=== PATIENT | male | born 1955 | race Caucasian/White ===

== ENCOUNTER 2019-07-13 09:55 | Emergency (ER) | payer OTHER, MEDICAID ==
[~2019-07-13] VITALS: Ht 188 cm; Wt 168.3 kg
[2019-07-13 10:09] VITALS: BP_SYST 177
--- NOTE | 2019-07-13 10:10 | NUR ---
PATIENT TO ER #5, TRUCK GREASER, SAO2, ABP
--- NOTE | 2019-07-13 10:18 | NUR ---
PATIENT PRESENTS TO THE ER WITH TWO HOUR HX OF EPISODIC HEMOPTYSIS VS HEMATEMESIS; NO TRAUMA, NO OTHER REMARKABLE S/S; PATIENT STATES CHRONIC SEVERE BODY ACHES
[2019-07-13] MEDS ORDERED: NACL 0.9% 1,000 ML IV ONE (10:24)
--- NOTE | 2019-07-13 10:25 | NUR ---
ERMD EVALUATION; ICE CHIPS PER ERMD
[2019-07-13] MEDS ORDERED: PANTOPRAZOLE SODIUM 40 MG/VIAL (PROTONIX) IVP ONE (10:30)
[2019-07-13] MEDS ORDERED: MORPHINE 4 MG/ML INJ. SYRINGE IVP ONE (10:30)
[2019-07-13] MEDS ORDERED: ONDANSETRON HCL 4 MG/2 ML VIAL IVP ONE (10:30)
[2019-07-13] MEDS ORDERED: cefTRIAXone 1 GM IVPB PREMIX 50 ML IV ONE (10:30)
[2019-07-13] MEDS ORDERED: TRIM100T11 PO (10:34)
[2019-07-13] MEDS ORDERED: POTA10TA15 PO (10:34)
[2019-07-13] MEDS ORDERED: BISA10SU61 RC (10:34)
[2019-07-13] MEDS ORDERED: SENN8.6T19 PO (10:34)
[2019-07-13] MEDS ORDERED: ZOLP5TAB2 PO (10:34)
[2019-07-13] MEDS ORDERED: SPIR25TA6 PO (10:34)
[2019-07-13] MEDS ORDERED: VITD2000 PO (10:34)
[2019-07-13] MEDS ORDERED: BACL10TA PO (10:34)
[2019-07-13] MEDS ORDERED: DULO60CA41 PO (10:34)
[2019-07-13] MEDS ORDERED: FLUT16SP16 NS (10:34)
[2019-07-13] MEDS ORDERED: FURO-149 PO (10:34)
[2019-07-13] MEDS ORDERED: LORA-258 PO (10:46)
[2019-07-13] MEDS ORDERED: MOM PO (10:46)
[2019-07-13] MEDS ORDERED: PRO40 PO (10:46)
[2019-07-13] MEDS ORDERED: LOPE2CAP PO (10:46)
[2019-07-13 11:32] LABS: BASOPHILS % (AUTO) 0.2 % (0.0-2.0); HEMATOCRIT 46.8 % (36-54); HEMOGLOBIN 16.2 g/dL (14.0-18.0); LYMPHOCYTES # (AUTO) 0.7 K/uL (1.0-5.5); LYMPHOCYTES % (AUTO) 7.8 % (20.5-51.5); MEAN CORPUSCULAR HEMOGLOBIN 33 pg (27-31); MEAN CORPUSCULAR HGB CONC 35 % (32-36); MEAN CORPUSCULAR VOLUME 96 fL (79.0-98.0); MONOCYTES # (AUTO) 0.5 K/uL (0.0-1.0); MONOCYTES % (AUTO) 5.1 % (1.7-9.3); NEUTROPHILS # (AUTO) 8.3 K/uL (1.8-7.7); NEUTROPHILS % (AUTO) 86.9 % (40.0-70.0); PLATELET COUNT (AUTO) 104 K/uL (130-430); RED BLOOD CELL COUNT(AUTO) 4.86 MIL/uL (4.2-6.2); RED CELL DISTRIBUTION WIDTH 14.5 % (9.0-15.0); WHITE BLOOD COUNT (AUTO) 9.6 K/uL (4.8-10.8)
--- NOTE | 2019-07-13 11:35 | NUR ---
REASSESSMENT; PATIENT STATES MARKED IMPROVEMENT IN SYMPTOMS; DISPOSITION PENDING; IN AND OUT CATH VERBAL ERMD FOR UA
[2019-07-13 11:48] LABS: CREATININE 0.96 mg/dL (0.55-1.30); POTASSIUM 3.7 mmol/L (3.5-5.1)
[2019-07-13 11:52] LABS: INR 1.1 (0.80-1.20); PROTHROMBIN TIME 11.3 SECS (9.5-12.5)
[2019-07-13 12:19] LABS: ALBUMIN 3.6 g/dL (3.4-4.8); FREE T4 (FREE THYROXINE) 1.2 ng/dl (0.8-1.5); THYROID STIMULATING HORMONE 0.88 uIu/mL (0.36-3.74); TOTAL BILIRUBIN 2.1 mg/dL (0.0-1.0)
[2019-07-13 12:26] LABS: CKMB RELATIVE INDEX 0.6 (0.0-2.9); CREATINE KINASE MB 2.9 ng/mL (0-3.6)
[2019-07-13 12:32] LABS: BILIRUBIN,URINE 1+ (NEGATIVE); BLOOD, URINE 1+ (NEGATIVE); GLUCOSE,URINE NEGATIVE (NEGATIVE); KETONES,URINE 1+ (NEGATIVE); LEUKOCYTE ESTERASE ,URINE NEGATIVE (NEGATIVE); NITRITE, URINE NEGATIVE (NEGATIVE); PH,URINE 6.5 (5.0-8.0); PROTEIN URINE 2+ (NEGATIVE); UROBILINOGEN,URINE 0.2 (0.2-1.0)
[2019-07-13 12:33] LABS: CLARITY/URINE HAZY (CLEAR); COLOR,URINE AMBER (YELLOW)
[2019-07-13 12:39] LABS: BACTERIA,URINE FEW /HPF (None Seen); MUCUS,URINE 1+ /LPF (None Seen); WBC,URINE 0-3 /HPF (0-3)
--- NOTE | 2019-07-13 12:40 | NUR ---
IV PULL OUT..(INADVERTENT); RESTART #24 LEFT HAND; REASSESSMENT; PATIENT STATES HIS PAIN HAS IMPROVED; DISPOSITION PENDING
--- NOTE | 2019-07-13 14:08 | NUR ---
REASSESSMENT; PATIENT IS SEDATE AND UNCHANGED; DISPOSITION PENDING
--- NOTE | 2019-07-13 14:37 | NUR ---
REASSESSMENT; PATIENT STATES HIS SYMPTOMS ARE MANAGED WELL, NO FURTHER HEMATEMESIS /HEMOPTYSIS, REPORT CALLED TO [facility] PENDING RETURN AND [facility] PHONED FOR BAKERY SUPERVISOR; ETA 30 MIN
[2019-07-13 14:44] VITALS: BP_SYST 154
--- NOTE | 2019-07-13 15:27 | NUR ---
DIPatient given written and verbal discharge instructions and verbalizes understanding. ER MD discussed with patient the results and treatment provided. Patient in stable condition. ID arm band removed. IV catheter removed intact and dressing applied, no active bleeding. Rx of Z PAC, PREDNISONE given. Patient educated on pain management and to follow up with PMD. Pain Scale . Opportunity for questions provided and answered. Medication side effect fact sheet provided.
== END 2019-07-13 14:44 ==
LOC: SED 09:55
DX: J40 Bronchitis, not specified as acute or chronic (principal); F41.9 Anxiety disorder, unspecified; R04.2 Hemoptysis; J44.9 Chronic obstructive pulmonary disease, unspecified; K21.9 Gastro-esophageal reflux disease without esophagitis; I10 Essential (primary) hypertension; I51.9 Heart disease, unspecified; F17.210 Nicotine dependence, cigarettes, uncomplicated; Z79.899 Other long term (current) drug therapy
CPT/HCPCS: 36415; 71045; 80053; 81000; 82150; 82550; 82553; 82962; 83605; 83690; 83880; 84439; 84443; 84479; 84484; 85025; 85610; 85730; 86710; 87040; 93005; 96365; 96375; 99285; C9113; J0696; J2270; J2405; J7030

== ENCOUNTER 2019-07-17 11:06 | Inpatient (IN) | payer OTHER, MEDICAID ==
[~2019-07-17] VITALS: Ht 188 cm; Wt 143.6 kg
[~2019-07-17 11:06] MED LIST: BACL10TA PO; BISA10SU61 RC; DULO60CA41 PO; FLUT16SP16 NS; FURO-149 PO; LOPE2CAP PO; LORA-258 PO; MOM PO; POTA10TA15 PO; PRO40 PO; SENN8.6T19 PO; SPIR25TA6 PO; TRIM100T11 PO; VITD2000 PO; ZOLP5TAB2 PO
[2019-07-17 11:14] VITALS: BP_SYST 130
[2019-07-17] MEDS ORDERED: HYDR-3610 PO (11:54)
[2019-07-17] MEDS ORDERED: ASA81 PO (11:54)
[2019-07-17] MEDS ORDERED: SULF1TAB3 PO (11:54)
[2019-07-17] MEDS ORDERED: ACET325C6 PO (11:54)
[2019-07-17] MEDS ORDERED: DOCU-144 PO (11:54)
[2019-07-17] MEDS ORDERED: ASCO500T9 PO (11:54)
[2019-07-17] MEDS ORDERED: LACT10SO7 PO (11:54)
[2019-07-17 12:30] LABS: BASOPHILS # (AUTO) 0.1 K/uL (0.0-0.2); BASOPHILS % (AUTO) 2.9 % (0.0-2.0); EOSINOPHILS # (AUTO) 0.2 K/uL (0.0-0.4); EOSINOPHILS % (AUTO) 3.6 % (0.0-4.0); HEMATOCRIT 44.1 % (36-54); HEMOGLOBIN 15.2 g/dL (14.0-18.0); LYMPHOCYTES # (AUTO) 0.9 K/uL (1.0-5.5); LYMPHOCYTES % (AUTO) 18.3 % (20.5-51.5); MEAN CORPUSCULAR HEMOGLOBIN 33 pg (27-31); MEAN CORPUSCULAR HGB CONC 35 % (32-36); MEAN CORPUSCULAR VOLUME 96 fL (79.0-98.0); MONOCYTES # (AUTO) 0.3 K/uL (0.0-1.0); MONOCYTES % (AUTO) 5.6 % (1.7-9.3); NEUTROPHILS # (AUTO) 3.3 K/uL (1.8-7.7); NEUTROPHILS % (AUTO) 69.6 % (40.0-70.0); PLATELET COUNT (AUTO) 111 K/uL (130-430); RED CELL DISTRIBUTION WIDTH 14.1 % (9.0-15.0); WHITE BLOOD COUNT (AUTO) 4.7 K/uL (4.8-10.8)
[2019-07-17 12:37] LABS: CALCIUM 7.9 mg/dL (8.4-11.0); CREATININE 0.8 mg/dL (0.55-1.30); POTASSIUM 3.3 mmol/L (3.5-5.1)
[2019-07-17 12:39] LABS: INR 1.1 (0.80-1.20); PROTHROMBIN TIME 11.2 SECS (9.5-12.5)
[2019-07-17 12:41] LABS: ALBUMIN 3.2 g/dL (3.4-4.8); TOTAL BILIRUBIN 2.4 mg/dL (0.0-1.0)
[2019-07-17 15:17] VITALS: BP_SYST 161
[2019-07-17] MEDS ORDERED: BACLOFEN 10 MG TABLET PO SCH (19:30)
[2019-07-17] MEDS ORDERED: MILK OF MAGNESIA 30 ML UDC PO SCH (19:30)
[2019-07-17] MEDS ORDERED: LORazepam 1 MG TABLET PO PRN (19:30)
[2019-07-17] MEDS ORDERED: ZOLPIDEM TARTRATE 5 MG TABLET PO PRN (19:30)
[2019-07-17 20:00] VITALS: BP_SYST 134
[2019-07-17] MEDS: DOCUSATE SODIUM 100 MG CAPSULE PO SCH (21:29)
[2019-07-17] MEDS: VANCOMYCIN HCL 1,500 MG in NS 250 ML IV SCH (21:29)
[2019-07-18 00:47] VITALS: BP_SYST 159
[2019-07-18] MEDS: VANCOMYCIN HCL 1,500 MG in NS 250 ML IV SCH ×3 (03:55→20:00)
[2019-07-18 08:00] VITALS: BP_SYST 113
[2019-07-18] MEDS ORDERED: HALOPERIDOL LACTATE 5 MG/ML VIAL ONE (08:47)
[2019-07-18] MEDS: POTASSIUM CHLORIDE 10 MEQ TAB.PRT.SR PO SCH (09:00)
[2019-07-18] MEDS: DULoxetine HCL 30 MG CAPSULE.DR (CYMBALTA) PO SCH (09:00)
[2019-07-18] MEDS ORDERED: DEXTROSE 50% JECT 50 ML DISP.SYRIN IVP PRN (09:00)
[2019-07-18] MEDS ORDERED: FUROSEMIDE 40 MG TABLET PO SCH (09:00)
[2019-07-18] MEDS: DOCUSATE SODIUM 100 MG CAPSULE PO SCH ×2 (09:00→21:00)
[2019-07-18] MEDS ORDERED: HALOPERIDOL LACTATE 5 MG/ML VIAL IM ONE (09:00)
[2019-07-18] MEDS ORDERED: PANTOPRAZOLE SODIUM 40 MG TAB PO SCH (09:00)
[2019-07-18] MEDS: SPIRONOLACTONE 25 MG TABLET (ALDACTONE) PO SCH (09:00)
[2019-07-18] MEDS ORDERED: PIPERACILLIN/TAZO 3.375/DEX-IS 50 ML IV ONE (09:00)
[2019-07-18] MEDS: ASPIRIN 81 MG TAB.CHEW PO SCH (09:00)
[2019-07-18 16:47] VITALS: BP_SYST 157
[2019-07-18] MEDS: PIPERACILLIN/TAZO 3.375/DEX-IS 50 ML IV SCH (18:00)
[2019-07-19 00:41] VITALS: BP_SYST 122
[2019-07-19] MEDS: VANCOMYCIN HCL 1,500 MG in NS 250 ML IV SCH ×3 (04:36→20:38)
[2019-07-19 06:18] LABS: CHOLESTEROL 113 mg/dL (<200); HDL CHOLESTEROL 35 mg/dL (>45); LDL CHOLESTEROL 63 mg/dL (<100); TRIGLYCERIDES 52 mg/dL (30-150)
[2019-07-19] MEDS: PIPERACILLIN/TAZO 3.375/DEX-IS 50 ML IV SCH ×4 (06:37→17:14)
[2019-07-19] MEDS: LORazepam 2 MG/ML VIAL IVP SCH ×3 (06:40→22:00)
[2019-07-19] MEDS: DIPHENHYDRAMINE INJ 50 MG/ML VIAL IVP SCH ×3 (06:41→22:00)
[2019-07-19] MEDS: HALOPERIDOL LACTATE 5 MG/ML VIAL IM SCH ×3 (06:52→22:00)
[2019-07-19 07:43] VITALS: BP_SYST 149
[2019-07-19] MEDS: DOCUSATE SODIUM 100 MG CAPSULE PO SCH ×2 (09:00→20:38)
[2019-07-19] MEDS: POTASSIUM CHLORIDE 10 MEQ TAB.PRT.SR PO SCH (09:00)
[2019-07-19] MEDS: ASPIRIN 81 MG TAB.CHEW PO SCH (09:00)
[2019-07-19] MEDS: SPIRONOLACTONE 25 MG TABLET (ALDACTONE) PO SCH (09:00)
[2019-07-19] MEDS: DULoxetine HCL 30 MG CAPSULE.DR (CYMBALTA) PO SCH (09:00)
[2019-07-19] MEDS ORDERED: PANTOPRAZOLE SODIUM 40 MG/VIAL (PROTONIX) IVP ONE (10:00)
[2019-07-19] MEDS ORDERED: FUROSEMIDE 40 MG/4 ML VIAL IVP ONE (10:00)
[2019-07-19 12:20] VITALS: BP_SYST 163
[2019-07-19 16:27] VITALS: BP_SYST 142
[2019-07-19] MEDS: INSULIN REGULAR, HUMAN 100 UNITS/ML, 10 ML VIAL (humuLIN R) SUBCUT PRN (17:12)
[2019-07-19 19:00] VITALS: BP_SYST 142
[2019-07-19 20:00] VITALS: BP_SYST 142
[2019-07-20 00:02] VITALS: BP_SYST 137
[2019-07-20] MEDS: PIPERACILLIN/TAZO 3.375/DEX-IS 50 ML IV SCH ×5 (00:12→17:26)
[2019-07-20] MEDS: INSULIN REGULAR, HUMAN 100 UNITS/ML, 10 ML VIAL (humuLIN R) SUBCUT PRN (00:34)
[2019-07-20] MEDS: VANCOMYCIN HCL 1,500 MG in NS 250 ML IV SCH ×3 (03:32→19:58)
[2019-07-20] MEDS: HALOPERIDOL LACTATE 5 MG/ML VIAL IM SCH ×3 (06:04→21:30)
[2019-07-20] MEDS: LORazepam 2 MG/ML VIAL IVP SCH ×3 (06:04→21:30)
[2019-07-20] MEDS: DIPHENHYDRAMINE INJ 50 MG/ML VIAL IVP SCH ×3 (06:05→21:30)
[2019-07-20] MEDS: SPIRONOLACTONE 25 MG TABLET (ALDACTONE) PO SCH (09:00)
[2019-07-20] MEDS: DOCUSATE SODIUM 100 MG CAPSULE PO SCH ×2 (09:00→21:00)
[2019-07-20] MEDS: ASPIRIN 81 MG TAB.CHEW PO SCH (09:00)
[2019-07-20] MEDS: POTASSIUM CHLORIDE 10 MEQ TAB.PRT.SR PO SCH (09:00)
[2019-07-20] MEDS: DULoxetine HCL 30 MG CAPSULE.DR (CYMBALTA) PO SCH (09:00)
[2019-07-20] MEDS: FUROSEMIDE 40 MG/4 ML VIAL IVP SCH (09:00)
[2019-07-20] MEDS: PANTOPRAZOLE SODIUM 40 MG/VIAL (PROTONIX) IVP SCH (09:40)
[2019-07-20 12:10] VITALS: BP_SYST 114
[2019-07-20 12:10] LABS: ALBUMIN 3.2 g/dL (3.4-4.8); CALCIUM 8.2 mg/dL (8.4-11.0); CREATININE 0.77 mg/dL (0.55-1.30); POTASSIUM 3.2 mmol/L (3.5-5.1); TOTAL BILIRUBIN 1.4 mg/dL (0.0-1.0); VANCOMYCIN,TROUGH 9.6 ug/mL (5.0-10.0)
[2019-07-20 12:12] LABS: BASOPHILS % (AUTO) 0.5 % (0.0-2.0); EOSINOPHILS # (AUTO) 0.2 K/uL (0.0-0.4); EOSINOPHILS % (AUTO) 5.7 % (0.0-4.0); HEMATOCRIT 45.7 % (36-54); HEMOGLOBIN 15.5 g/dL (14.0-18.0); LYMPHOCYTES # (AUTO) 0.9 K/uL (1.0-5.5); LYMPHOCYTES % (AUTO) 23.2 % (20.5-51.5); MEAN CORPUSCULAR HEMOGLOBIN 33 pg (27-31); MEAN CORPUSCULAR HGB CONC 34 % (32-36); MEAN CORPUSCULAR VOLUME 96 fL (79.0-98.0); MONOCYTES # (AUTO) 0.3 K/uL (0.0-1.0); MONOCYTES % (AUTO) 8.3 % (1.7-9.3); NEUTROPHILS # (AUTO) 2.3 K/uL (1.8-7.7); NEUTROPHILS % (AUTO) 62.3 % (40.0-70.0); PLATELET COUNT (AUTO) 94 K/uL (130-430); RED BLOOD CELL COUNT(AUTO) 4.77 MIL/uL (4.2-6.2); RED CELL DISTRIBUTION WIDTH 14.7 % (9.0-15.0); WHITE BLOOD COUNT (AUTO) 3.7 K/uL (4.8-10.8)
[2019-07-20 16:23] VITALS: BP_SYST 136
[2019-07-21] MEDS: PIPERACILLIN/TAZO 3.375/DEX-IS 50 ML IV SCH ×3 (00:22→11:24)
[2019-07-21 00:29] VITALS: BP_SYST 117
[2019-07-21] MEDS: VANCOMYCIN HCL 1,500 MG in NS 250 ML IV SCH ×2 (03:28→11:24)
[2019-07-21] MEDS: DIPHENHYDRAMINE INJ 50 MG/ML VIAL IVP SCH ×3 (06:00→21:32)
[2019-07-21] MEDS: LORazepam 2 MG/ML VIAL IVP SCH ×3 (06:00→21:32)
[2019-07-21] MEDS: HALOPERIDOL LACTATE 5 MG/ML VIAL IM SCH ×2 (06:10→22:00)
[2019-07-21] MEDS ORDERED: DIPHENHYDRAMINE INJ 50 MG/ML VIAL IM ONE ×2 (06:45→14:30)
[2019-07-21] MEDS ORDERED: LORazepam 2 MG/ML VIAL IM ONE ×2 (06:45→14:30)
[2019-07-21] MEDS: SPIRONOLACTONE 25 MG TABLET (ALDACTONE) PO SCH (09:00)
[2019-07-21] MEDS: DOCUSATE SODIUM 100 MG CAPSULE PO SCH ×2 (09:00→21:28)
[2019-07-21] MEDS: PANTOPRAZOLE SODIUM 40 MG/VIAL (PROTONIX) IVP SCH (09:00)
[2019-07-21] MEDS: POTASSIUM CHLORIDE 10 MEQ TAB.PRT.SR PO SCH (09:00)
[2019-07-21] MEDS: FUROSEMIDE 40 MG/4 ML VIAL IVP SCH (09:00)
[2019-07-21] MEDS: ASPIRIN 81 MG TAB.CHEW PO SCH (09:00)
[2019-07-21] MEDS: DULoxetine HCL 30 MG CAPSULE.DR (CYMBALTA) PO SCH (09:00)
[2019-07-21 12:18] VITALS: BP_SYST 143
[2019-07-21 16:08] VITALS: BP_SYST 145
[2019-07-21] MEDS ORDERED: CLINDAMYCIN HCL 150 MG CAPSULE PO ONE (16:15)
[2019-07-21] MEDS ORDERED: LEVOFLOXACIN 500 MG TABLET PO ONE (16:15)
[2019-07-21 20:00] VITALS: BP_SYST 137
[2019-07-21] MEDS: CLINDAMYCIN HCL 150 MG CAPSULE PO SCH (21:27)
[2019-07-22 00:19] VITALS: BP_SYST 163
[2019-07-22] MEDS: HYDROcodone/ACETAMIN 5-325 MG TAB (NORCO/ VICODIN) PO PRN (01:50)
[2019-07-22 04:50] VITALS: BP_SYST 125
[2019-07-22 08:35] VITALS: BP_SYST 148
[2019-07-22] MEDS: FUROSEMIDE 40 MG/4 ML VIAL IVP SCH (08:40)
[2019-07-22] MEDS: PANTOPRAZOLE SODIUM 40 MG/VIAL (PROTONIX) IVP SCH (08:40)
[2019-07-22] MEDS: ASPIRIN 81 MG TAB.CHEW PO SCH (08:40)
[2019-07-22] MEDS: DULoxetine HCL 30 MG CAPSULE.DR (CYMBALTA) PO SCH (08:41)
[2019-07-22] MEDS: DOCUSATE SODIUM 100 MG CAPSULE PO SCH ×2 (08:41→21:05)
[2019-07-22] MEDS: SPIRONOLACTONE 25 MG TABLET (ALDACTONE) PO SCH (08:41)
[2019-07-22] MEDS: POTASSIUM CHLORIDE 10 MEQ TAB.PRT.SR PO SCH (08:41)
[2019-07-22] MEDS: LEVOFLOXACIN 500 MG TABLET PO SCH (08:41)
[2019-07-22] MEDS: CLINDAMYCIN HCL 150 MG CAPSULE PO SCH ×3 (08:41→21:05)
[2019-07-22 12:11] VITALS: BP_SYST 135
[2019-07-22 16:40] VITALS: BP_SYST 130
[2019-07-22 20:10] VITALS: BP_SYST 142
[2019-07-23 00:11] VITALS: BP_SYST 156
[2019-07-23] MEDS: HYDROcodone/ACETAMIN 5-325 MG TAB (NORCO/ VICODIN) PO PRN (03:54)
[2019-07-23 08:40] VITALS: BP_SYST 115
[2019-07-23] MEDS ORDERED: PANTOPRAZOLE SODIUM 40 MG TAB PO SCH (09:00)
[2019-07-23] MEDS ORDERED: EMOLLIENT COMBINATION NO.73 78 GM CREAM..G. TP SCH (09:00)
[2019-07-23] MEDS ORDERED: FUROSEMIDE 40 MG TABLET PO SCH (09:00)
[2019-07-23] MEDS: FUROSEMIDE 40 MG/4 ML VIAL IVP SCH (09:00)
[2019-07-23] MEDS: DULoxetine HCL 30 MG CAPSULE.DR (CYMBALTA) PO SCH (09:13)
[2019-07-23] MEDS: SPIRONOLACTONE 25 MG TABLET (ALDACTONE) PO SCH (09:13)
[2019-07-23] MEDS: POTASSIUM CHLORIDE 10 MEQ TAB.PRT.SR PO SCH (09:13)
[2019-07-23] MEDS: ASPIRIN 81 MG TAB.CHEW PO SCH (09:14)
[2019-07-23] MEDS: LEVOFLOXACIN 500 MG TABLET PO SCH (09:14)
[2019-07-23] MEDS: DOCUSATE SODIUM 100 MG CAPSULE PO SCH (09:19)
[2019-07-23] MEDS: CLINDAMYCIN HCL 150 MG CAPSULE PO SCH ×2 (09:19→15:18)
[2019-07-23 12:55] VITALS: BP_SYST 150
[2019-07-23 16:14] VITALS: BP_SYST 150
[2019-07-23 17:28] VITALS: BP_SYST 147
== END 2019-07-23 18:39 | DRG 565 ==
LOC: SED 11:06 → SMU 14:03
PROVIDERS: ADMIT Internal Medicine Hospice and Palliative Medicine; ATTEND Internal Medicine Hospice and Palliative Medicine
DX: T87.44 Infection of amputation stump, left lower extremity (principal); L03.115 Cellulitis of right lower limb; F23 Brief psychotic disorder; F11.20 Opioid dependence, uncomplicated; Z68.41 Body mass index [BMI] 40.0-44.9, adult; L03.116 Cellulitis of left lower limb; I25.10 Atherosclerotic heart disease of native coronary artery without angina pectoris; J44.9 Chronic obstructive pulmonary disease, unspecified; E66.01 Morbid (severe) obesity due to excess calories; F25.0 Schizoaffective disorder, bipolar type; G47.00 Insomnia, unspecified; G89.4 Chronic pain syndrome; K21.9 Gastro-esophageal reflux disease without esophagitis; Y83.5 Amputation of limb(s) as the cause of abnormal reaction of the patient, or of later complication, without mention of misadventure at the time of the procedure; E11.51 Type 2 diabetes mellitus with diabetic peripheral angiopathy without gangrene; I11.0 Hypertensive heart disease with heart failure; I50.9 Heart failure, unspecified; F32.9 Major depressive disorder, single episode, unspecified; Z89.612 Acquired absence of left leg above knee; Z79.82 Long term (current) use of aspirin; Z79.899 Other long term (current) drug therapy; Y92.89 Other specified places as the place of occurrence of the external cause
CPT/HCPCS: 36415; 71045; 73552; 73700-TC; 78315; 80053; 80061; 80202-TC; 82962; 83036; 83605; 84484; 85025; 85610-TC; 85730-TC; 87040-TC; 87070-TC; 87081; 93005; 93923; 99285; A6209; A9503; C9113; J1200; J1630; J1815; J1940; J2060; J2543; J3370; J7050

== ENCOUNTER 2021-12-25 17:21 | Inpatient (IN) | payer OTHER, MEDICAID ==
[~2021-12-25] VITALS: Ht 190.5 cm; Wt 158.5 kg
[~2021-12-25 17:21] MED LIST changes: +ACET325C6 PO; +ASA81 PO; +ASC500 PO; +DOCU-144 PO; -DULO60CA41 PO; +DULO60CA42 PO; +HYDR-3610 PO; +LACT10SO7 PO; +SULF1TAB3 PO; -TRIM100T11 PO
[2021-12-25 17:30] VITALS: BP_SYST 110
--- NOTE | 2021-12-25 17:35 | NUR ---
Patient to ER bed 06 to gown for evaluation. Side rails up.
--- NOTE | 2021-12-25 17:40 | NUR ---
Patient came in c/o right leg pain x several weeks. 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 Pt states he has hx of type II DM, hypertension and cardiovascular disease. Pt was recently released from [facility]. Pt is A&Ox4, calm and cooperative and in no acute distress at this time. Pt states he was told to come to the hospital by his primary care provider. Will provide care as ordered.
[2021-12-25] MEDS ORDERED: PIPERACILLIN/TAZO 3.375 GM in D5W 50 ML IV ONE (19:00)
[2021-12-25] MEDS ORDERED: VANCOMYCIN HCL 1,000 MG in D5W 250 ML IV ONE (19:00)
[2021-12-25 19:22] LABS: BASOPHILS % (AUTO) 0.4 % (0.0-2.0); EOSINOPHILS # (AUTO) 0.1 K/uL (0.0-0.4); EOSINOPHILS % (AUTO) 5.6 % (0.0-4.0); HEMATOCRIT 39.8 % (36-54); LYMPHOCYTES # (AUTO) 0.6 K/uL (1.0-5.5); MEAN CORPUSCULAR VOLUME 94 fL (79.0-98.0); MONOCYTES # (AUTO) 0.2 K/uL (0.0-1.0); MONOCYTES % (AUTO) 10.1 % (1.7-9.3); NEUTROPHILS # (AUTO) 1.1 K/uL (1.8-7.7); NEUTROPHILS % (AUTO) 55.9 % (40.0-70.0); RED BLOOD CELL COUNT(AUTO) 4.22 MIL/uL (4.2-6.2); RED CELL DISTRIBUTION WIDTH 14.6 % (9.0-15.0)
[2021-12-25 19:35] LABS: ANION GAP 6 (5-15); CALCIUM 8.8 mg/dL (8.4-11.0); CHLORIDE 103 mmol/L (98-107); CREATININE 0.95 mg/dL (0.55-1.30); GLUCOSE 108 mg/dL (70-99); POTASSIUM 3.6 mmol/L (3.5-5.1); UREA NITROGEN, BLOOD 15 mg/dL (8-21)
[2021-12-25 19:36] LABS: GFR AFRICAN AMERICAN 102 mL/min (>90)
[2021-12-25 19:37] LABS: PROTHROMBIN TIME 10.7 SECS (9.5-12.5)
[2021-12-25 19:44] LABS: ALANINE AMINOTRANSFERASE 18 U/L (12-78); ALBUMIN 3.4 g/dL (3.4-4.8); ASPARTATE AMINOTRANSFERASE 26 U/L (10-37); TOTAL BILIRUBIN 1.3 mg/dL (0.0-1.0)
[2021-12-25 19:56] LABS: PLATELET COUNT (AUTO) 83 K/uL (130-430)
[2021-12-25 20:02] LABS: ERYTHROCYTE SEDIMENTATION RATE 8 MM/HR (0-15)
--- NOTE | 2021-12-25 20:09 | NUR ---
COVID-19 ANTIGEN TEST TAKEN AND SENT TO LAB.
[2021-12-25] MEDS ORDERED: PIPERACILLIN/TAZOBACTAM 3.375 GM/VIAL (ZOSYN) IV ONE (21:03)
[2021-12-25] MEDS ORDERED: VANCOMYCIN HCL 1000 MG/VIAL IV ONE (21:38)
[2021-12-25] MEDS ORDERED: LIP20 PO (22:06)
[2021-12-25] MEDS ORDERED: ACET650S27 RC (22:09)
[2021-12-25] MEDS ORDERED: ASPI-1393 PO (22:10)
[2021-12-25] MEDS ORDERED: LORA-259 PO (22:11)
[2021-12-25] MEDS ORDERED: CILO100T PO (22:11)
[2021-12-25] MEDS ORDERED: HYDR2TAB4 PO (22:13)
[2021-12-25] MEDS ORDERED: BISA10SU61 RC (22:14)
[2021-12-25] MEDS ORDERED: IPRA3AMP9 INH (22:14)
[2021-12-25] MEDS ORDERED: FLEETMO RC (22:15)
[2021-12-25] MEDS ORDERED: NEU300 PO (22:16)
[2021-12-25] MEDS ORDERED: HYOS0.1275 PO (22:17)
[2021-12-25] MEDS ORDERED: ESCI10TA PO (22:18)
[2021-12-25] MEDS ORDERED: ONDA4TAB55 PO (22:18)
[2021-12-25] MEDS ORDERED: PROP10DR2 EACH EYE (22:19)
--- NOTE | 2021-12-25 22:27 | NUR ---
Medication reconciliation completed with information provided by [facility]. Any prior medication reconciliation on file was reviewed and corrected.
--- NOTE | 2021-12-25 23:17 | NUR ---
PER ARACELI MARLEY TC, PT DOES NOT MEET CRITERIA FOR HIGHER LEVEL OF CARE. DR. ADRIANNA PEREA.
--- NOTE | 2021-12-26 00:12 | NUR ---
Admit bed requested Patient will be admitted to care of Dr. Momin Admitted to MS unit. Diagnosis Cellulitis, PVD Inpatient (Yes or No) yes Observation (Yes or No) no Orientation concerns or request close to nursing station (Yes or No) no Covid Status negative On vent or bipap no Isolation requirements no Needs a sitter no From Home (Yes or if No enter name of facility) no, [facility] Requires Dialysis (Yes or No) no Med Rec Completed (Yes of No) yes
--- NOTE | 2021-12-26 01:19 | NUR ---
Admission Note Received patient from ER with diagnosis of cellulits and pvd. Initial Plan of Care discussed-patient verbalized understanding. Oriented to room, call light, pain management and safety.
--- NOTE | 2021-12-26 01:27 | NUR ---
Patient will be admitted to care of DR SUAREZ. Admitted to MEDSURG unit. Will go to room 111B. Belongings list completed. Complete and up to date summary report printed. SBAR report to be given to Terrence on phone with opportunity for questions.
[2021-12-26 01:30] VITALS: BP_SYST 144
[2021-12-26] MEDS: HYDROmorphone 2 MG/ML VIAL IVP PRN ×5 (01:49→20:57)
[2021-12-26 02:02] LABS: BILIRUBIN,URINE NEGATIVE (NEGATIVE); BLOOD, URINE NEGATIVE (NEGATIVE); CLARITY/URINE CLEAR (CLEAR); COLOR,URINE ORANGE (YELLOW); GLUCOSE,URINE NEGATIVE (NEGATIVE); KETONES,URINE NEGATIVE (NEGATIVE); LEUKOCYTE ESTERASE ,URINE NEGATIVE (NEGATIVE); NITRITE, URINE NEGATIVE (NEGATIVE); PROTEIN URINE NEGATIVE (NEGATIVE)
[2021-12-26] MEDS ORDERED: PIPERACILLIN/TAZOBACTAM 3.375 GM/VIAL (ZOSYN) IV ONE (02:44)
[2021-12-26] MEDS ORDERED: PIPERACILLIN/TAZO 3.375/DEX-IS 50 ML IV SCH (03:00)
--- NOTE | 2021-12-26 05:07 | NUR ---
ROUNDS PATIENT IN BED, RESTING. NO SIGNS OF DISCOMFORT NOTED. CHEST RISE AND FALL EVEN BILATERALLY. ALL NEEDS MET. WILL CONTINUE TO MONITOR.
--- NOTE | 2021-12-26 05:38 | NUR ---
CONSULTATION CALLED FOR DR. HATFIELD FOR CONSULT OF CELLULITIS ORDER FOR DR Rd SUAREZ SPOKE WITH ANJUM
--- NOTE | 2021-12-26 06:20 | NUR ---
CLOSING NOTE PATIENT IN BED, SLEEPING COMFORTABLY. NO S/S OF ACUTE DISTRESS. BREATHING IS EVEN AND UNLABORED. IV SITE IS PATENT, NO SIGNS OF INFILTRATION OR INFECTION NOTED. SKIN WARM AND DRY TO TOUCH. ALL NEEDS MET THROUGHOUT SHIFT. FALL, SAFETY PRECAUTIONS MAINTAINED THROUGHOUT SHIFT. WILL CONTINUE TO MONITOR UNTIL PATIENT CARE IS ENDORSED TO ONCOMING DAYSHIFT NURSE.
--- NOTE | 2021-12-26 07:30 | NUR ---
INITIAL ROUNDS Received pt AAOx4, no s/s resp distress, slight wheezing noted-pt stated he smokes about 5 cigarettes a day for years-pt educated on smoking cessation-teach back done. No c/o pain or discomfort. Pt's right leg with dry, flaky, reddened skin with 2+ pitting edema, right leg elevated on pillow with heels off-loaded. Plan of care for the day reviewed with pt-pt verbalized his understanding. Pain management, disease process, skin and safety discussed-teach back done. Side rails up x3, bed alarm on for safety. Call light within reach.
[2021-12-26 08:29] VITALS: BP_SYST 152
[2021-12-26] MEDS ORDERED: HYDROmorphone 2 MG TAB PO PRN (08:45)
[2021-12-26] MEDS ORDERED: LORazepam 1 MG TABLET PO PRN (08:45)
[2021-12-26] MEDS ORDERED: BISACODYL 10 MG/SUPPOSITORY RC PRN (08:45)
[2021-12-26] MEDS ORDERED: LORazepam 2 MG/ML VIAL IVP PRN (08:45)
[2021-12-26] MEDS ORDERED: ONDANSETRON 4 MG ODT TAB PO PRN (08:45)
[2021-12-26] MEDS ORDERED: NALOXONE HCL 0.4 MG/ML AMP (NARCAN) IVP PRN (08:45)
[2021-12-26] MEDS ORDERED: IPRATROPIUM/ALBUTEROL SULFATE 3 ML AMPUL.NEB (DUONEB) INH PRN (08:45)
[2021-12-26] MEDS ORDERED: ACETAMINOPHEN 650 MG SUPP.RECT RC PRN (08:45)
[2021-12-26] MEDS ORDERED: MINERAL OIL 133 ML ENEMA RC PRN (08:45)
[2021-12-26] MEDS ORDERED: MILK OF MAGNESIA 30 ML UDC PO PRN (08:45)
[2021-12-26] MEDS ORDERED: HYOSCYAMINE SULFATE 0.125 MG TABLET PO PRN (08:45)
[2021-12-26] MEDS ORDERED: PEG 400/HYPROMELLOSE/GLYCERIN 15 ML DROPS EACH EYE PRN (08:45)
[2021-12-26] MEDS ORDERED: ACETAMINOPHEN 325 MG TABLET PO PRN (08:45)
--- NOTE | 2021-12-26 09:30 | NUR ---
CONSULT ID CELLULITIS ALEXANDRO GUTIERREZ [phone] S/W MERRICK EXCHANGE
[2021-12-26] MEDS: CILOSTAZOL 50 MG TABLET (PLETAL) PO SCH ×2 (10:06→21:01)
[2021-12-26] MEDS: CITALOPRAM HYDROBROMIDE 20 MG TABLET PO SCH (10:07)
[2021-12-26] MEDS: GABAPENTIN 300 MG CAPSULE PO SCH ×3 (10:07→21:01)
[2021-12-26] MEDS: ASPIRIN 81 MG TABLET(ECOTRIN) PO SCH (10:07)
[2021-12-26] MEDS: PIPERACILLIN/TAZOBACTAM 3.375 GM/ D5W 50 ML IV SCH ×6 (10:07→21:08)
[2021-12-26 11:06] VITALS: BP_SYST 143
[2021-12-26 16:36] VITALS: BP_SYST 135
--- NOTE | 2021-12-26 19:32 | NUR ---
CLOSING NOTE Pt sitting up in bed watching television. No s/s resp distress, no c/o pain or discomfort. Care endorsed to sliver lapper nurse. All precautions remain in place. Call light within reach.
[2021-12-26 19:50] VITALS: BP_SYST 140
--- NOTE | 2021-12-26 19:50 | NUR ---
INITIAL NOTE AT INITIAL ASSESSMENT, PATIENT IS RESTING IN BED, STABLE, NO SIGNS OF RESPIRATORY DISTRESS. HE VERBALIZES TOLERABLE PAIN. PLAN OF CARE FOR THE EVENING IS COMMUNICATED WITH PATIENT. CALL LIGHT TEACH BACK IS SUCCESSFUL AT THIS TIME. BED IS LOCKED, ALARMED, AND THE LOWEST LEVEL. FALL, AND SAFETY PRECAUTIONS WILL BE TAKEN THROUGHOUT THE SHIFT.
--- NOTE | 2021-12-26 20:55 | NUR ---
PAIN NOTE PRN MEDICATION GIVEN FOR PATIENT'S COMPLAIN OF SEVERE PAIN ON RIGHT LOWER EXTREMITY. WILL MONITOR FOR EFFECTIVENESS.
[2021-12-26] MEDS: ATORVASTATIN 20 MG TABLET PO SCH (21:01)
[2021-12-27] VITALS: BP_SYST 148
[2021-12-27] MEDS: HYDROmorphone 2 MG/ML VIAL IVP PRN ×6 (01:13→22:09)
--- NOTE | 2021-12-27 01:13 | NUR ---
PAIN NOTE PRN MEDICATION GIVEN FOR PATIENT'S COMPLAIN OF SEVERE PAIN ON RIGHT LOWER EXTREMITY. WILL MONITOR FOR EFFECTIVENESS.
[2021-12-27] MEDS: PIPERACILLIN/TAZOBACTAM 3.375 GM/ D5W 50 ML IV SCH ×6 (04:06→15:43)
--- NOTE | 2021-12-27 05:10 | NUR ---
PAIN NOTE PRN MEDICATION GIVEN FOR PATIENT'S COMPLAIN OF SEVERE PAIN ON RIGHT LOWER EXTREMITY. WILL MONITOR FOR EFFECTIVENESS.
--- NOTE | 2021-12-27 06:53 | NUR ---
CLOSING NOTE PRN MEDICATION GIVEN FOR PATIENT'S PAIN COMPLAINT WAS ENOUGH TO BRING HIS PAIN TO A TOLERABLE LEVEL, OR FOR HIM TO FALL ASLEEP. HE IS CURRENTLY RESTING IN BED, STABLE, NO SIGNS OF RESPIRATORY DISTRESS. CALL LIGHT IS WITHIN REACH. BED IS LOCKED, ALARMED, AND AT THE LOWEST LEVEL. FALL, SAFETY, ASPIRATION, AND RESPIRATORY PRECAUTIONS HAVE BEEN IN PLACE THROUGHOUT THE NIGHT. WILL CONTINUE TO MONITOR UNTIL REPORT IS GIVEN AT BEDSIDE TO AM NURSE.
[2021-12-27 07:00] VITALS: BP_SYST 134
[2021-12-27 07:13] LABS: BASOPHILS % (AUTO) 0.3 % (0.0-2.0); EOSINOPHILS # (AUTO) 0.1 K/uL (0.0-0.4); EOSINOPHILS % (AUTO) 6.6 % (0.0-4.0); HEMATOCRIT 37.6 % (36-54); LYMPHOCYTES # (AUTO) 0.5 K/uL (1.0-5.5); LYMPHOCYTES % (AUTO) 26.9 % (20.5-51.5); MEAN CORPUSCULAR VOLUME 95 fL (79.0-98.0); MONOCYTES # (AUTO) 0.2 K/uL (0.0-1.0); MONOCYTES % (AUTO) 9.2 % (1.7-9.3); NEUTROPHILS # (AUTO) 1.1 K/uL (1.8-7.7); PLATELET COUNT (AUTO) 78 K/uL (130-430); RED BLOOD CELL COUNT(AUTO) 3.95 MIL/uL (4.2-6.2); RED CELL DISTRIBUTION WIDTH 14.8 % (9.0-15.0)
[2021-12-27 07:33] LABS: WHITE BLOOD COUNT (AUTO) 1.9 K/uL (4.8-10.8)
[2021-12-27 08:00] VITALS: BP_SYST 134
[2021-12-27 08:28] LABS: ALANINE AMINOTRANSFERASE 21 U/L (12-78); ANION GAP 7 (5-15); ASPARTATE AMINOTRANSFERASE 25 U/L (10-37); CALCIUM 8.4 mg/dL (8.4-11.0); CHLORIDE 106 mmol/L (98-107); CREATININE 0.95 mg/dL (0.55-1.30); GLUCOSE 98 mg/dL (70-99); PHOSPHORUS 3.5 mg/dL (2.7-4.5); POTASSIUM 3.7 mmol/L (3.5-5.1); TOTAL BILIRUBIN 1.4 mg/dL (0.0-1.0); UREA NITROGEN, BLOOD 16 mg/dL (8-21)
[2021-12-27 08:33] LABS: GFR AFRICAN AMERICAN 102 mL/min (>90)
[2021-12-27] MEDS: CILOSTAZOL 50 MG TABLET (PLETAL) PO SCH ×2 (09:27→20:43)
[2021-12-27] MEDS: CITALOPRAM HYDROBROMIDE 20 MG TABLET PO SCH (09:28)
[2021-12-27] MEDS: ASPIRIN 81 MG TABLET(ECOTRIN) PO SCH (09:28)
[2021-12-27] MEDS: GABAPENTIN 300 MG CAPSULE PO SCH ×3 (09:28→20:43)
--- NOTE | 2021-12-27 11:16 | NUR ---
CONSULTATION PAGED REASON FOR CONSULTATION LEUKEMIA/THROMBOCYTOPENIA WAS CONSULT CALED?Y PERSON WHO WAS NOTIFIED:LINDA CONSULTING PHYSICIAN:CHRISTIANE MCGUIRE CODING COORDINATOR SPECIALTY:ONCOLOGY/HEMATOLOGY CODING COORDINATOR PHONE NUMBER:[phone] REQUESTING PHYSICIAN:ERICK MANDEL AMIT
--- NOTE | 2021-12-27 12:32 | NUR ---
DISCHARGE PLANNING Order for transfer to [facility], called & discussed with Dr Momin, states to cancel transfer, HLOC not needed. Gave ph order for Vascular Surgeon consult for PAD. Updated charge nurse.
--- NOTE | 2021-12-27 12:53 | NUR ---
CONSULTATION PAGED REASON FOR CONSULTATION PAD WAS CONSULT CALED?Y PERSON WHO WAS NOTIFIED:CARMELLA [facility]ENBERG [facility] CONSULTING PHYSICIAN:TAWNY ROSENBERG STATION CAPTAIN SPECIALTY:VASCULAR SURGEON STATION CAPTAIN PHONE NUMBER:[phone] REQUESTING PHYSICIAN:EBEN AC
[2021-12-27 13:56] LABS: ERYTHROCYTE SEDIMENTATION RATE 7 MM/HR (0-15)
--- NOTE | 2021-12-27 15:38 | NUR ---
DISCHARGE PLANNING Received call from pt's Best Friend and POA, [employer] [facility](best since she is [facility]) [phone] cell [phone], states she is POA and will bring copy of Power of [employer] Wrangler tomorrow. States pt came from [facility] and the plan will be for him to go back if he is agreeable. Has not been at [facility] too long but did not like SNF was at before in [place].
[2021-12-27 20:00] VITALS: BP_SYST 138
[2021-12-27 20:37] LABS: C-REACTIVE PROTEIN QUANT < 0.2 mg/dL (0-0.5)
[2021-12-27] MEDS: ATORVASTATIN 20 MG TABLET PO SCH (20:43)
[2021-12-27] MEDS: ceFAZolin SODIUM 2 GM in D5W 50 ML IV SCH (20:47)
[2021-12-28] VITALS: BP_SYST 130
[2021-12-28] MEDS: HYDROmorphone 2 MG/ML VIAL IVP PRN ×6 (01:32→21:48)
[2021-12-28 04:00] VITALS: BP_SYST 139
[2021-12-28] MEDS: ceFAZolin SODIUM 2 GM in D5W 50 ML IV SCH ×3 (05:25→21:48)
--- NOTE | 2021-12-28 06:38 | NUR ---
ASLEEP ON AND OFF LAST NIGHT. MEDICATED FOR PAIN NEEDED. COMPLAINED OF RIGHT LEG PAIN MOST OF THE TIME. KEPT WARM AND COMFORTABLE. NO DISTRESS NOTED. INSTRUCTED TO KEPT NPO FOR ABDOMINAL ULTRASOUND. PIV INTACT AND INFUSING WELL. ALL NEEDS ATTENDED. CALL LIGHT PLACED WITHIN REACH. MONITORED CLOSELY.
[2021-12-28 07:00] VITALS: BP_SYST 135
[2021-12-28 07:28] LABS: BASOPHILS % (AUTO) 0.6 % (0.0-2.0); EOSINOPHILS # (AUTO) 0.1 K/uL (0.0-0.4); EOSINOPHILS % (AUTO) 5.8 % (0.0-4.0); HEMATOCRIT 36.9 % (36-54); LYMPHOCYTES # (AUTO) 0.5 K/uL (1.0-5.5); MEAN CORPUSCULAR VOLUME 95 fL (79.0-98.0); MONOCYTES # (AUTO) 0.1 K/uL (0.0-1.0); MONOCYTES % (AUTO) 8.5 % (1.7-9.3); NEUTROPHILS % (AUTO) 55.1 % (40.0-70.0); PLATELET COUNT (AUTO) 77 K/uL (130-430); RED BLOOD CELL COUNT(AUTO) 3.88 MIL/uL (4.2-6.2); RED CELL DISTRIBUTION WIDTH 14.4 % (9.0-15.0)
[2021-12-28 07:34] LABS: NEUTROPHILS # (AUTO) 0.9 K/uL (1.8-7.7)
[2021-12-28 07:49] LABS: ANION GAP 6 (5-15); CALCIUM 8.4 mg/dL (8.4-11.0); CHLORIDE 108 mmol/L (98-107); CREATININE 0.95 mg/dL (0.55-1.30); GLUCOSE 103 mg/dL (70-99); POTASSIUM 3.8 mmol/L (3.5-5.1); UREA NITROGEN, BLOOD 20 mg/dL (8-21)
[2021-12-28 08:00] VITALS: BP_SYST 135
[2021-12-28 08:03] LABS: TOTAL IRON BIND. CAPACITY 265 ug/dL (250-450)
[2021-12-28 08:44] LABS: C-REACTIVE PROTEIN QUANT < 0.2 mg/dL (0-0.5); GFR AFRICAN AMERICAN 102 mL/min (>90)
[2021-12-28 09:05] LABS: ERYTHROCYTE SEDIMENTATION RATE 10 MM/HR (0-15)
--- NOTE | 2021-12-28 09:32 | NUR ---
PATIENT EVALUATED. HE IS AT HIS PRIOR LEVEL OF FUNCTIONAL MOBILITY. WHICH IS USE OF THE GURDEEP LIFT FOR OUT OF BED TRANSFERS TO A WHEELCHAIR SEVERAL TIMES A WEEK AT THE SNF. HE IS NOT APPROPRIATE FOR SKILLED ACUTE PHYSICAL THERAPY. NURSING SHOULD CONTINUE TO ENCOURAGE REPOSITIONING. USE MECHANICAL LIFT FOR TRANSFERS OUT OF BED. HE DOES NOT STAND.
[2021-12-28] MEDS: ASPIRIN 81 MG TABLET(ECOTRIN) PO SCH (09:39)
[2021-12-28] MEDS: CITALOPRAM HYDROBROMIDE 20 MG TABLET PO SCH (09:39)
[2021-12-28] MEDS: GABAPENTIN 300 MG CAPSULE PO SCH ×3 (09:39→21:47)
[2021-12-28] MEDS: CILOSTAZOL 50 MG TABLET (PLETAL) PO SCH ×2 (09:39→21:47)
[2021-12-28 09:43] LABS: INR 1.3 (0.80-1.20); PROTHROMBIN TIME 13.6 SECS (9.5-12.5)
[2021-12-28 11:59] LABS: WHITE BLOOD COUNT (AUTO) 1.7 K/uL (4.8-10.8)
[2021-12-28] MEDS ORDERED: ASPI-1155 PO (15:09)
[2021-12-28] MEDS ORDERED: NA P133E41 RC (15:09)
[2021-12-28 16:00] VITALS: BP_SYST 135
[2021-12-28] MEDS ORDERED: TBO-FILGRASTIM 480 MCG/0.8 ML SYRINGE SUBCUT ONE (17:00)
[2021-12-28 19:30] VITALS: BP_SYST 139
--- NOTE | 2021-12-28 19:30 | NUR ---
PM ASSESSMENT; -Pt is a/ox4, resting in bed. Pt denies any chest pain,pain,sob,or any acute distress. Left hand IV site patent,no s/s any infiltration noted. Discussed poc with pt and pain mgmt and informed when next Dilaudid dose due and pt is able to use call light with good returns demonstration, pt verbalized understanding. Bed alarmed, side rails x2, call light w/in reach. Cont to monitor pt.
[2021-12-28] MEDS: ATORVASTATIN 20 MG TABLET PO SCH (21:47)
[2021-12-29 00:30] VITALS: BP_SYST 134
--- NOTE | 2021-12-29 00:30 | NUR ---
ROUNDS; -Pt is resting in bed. Pt denies any pain,sob,or any acute distress. VSS. Bed alarmed, side rails x2, call light w/in reach. Cont to monitor pt.
--- NOTE | 2021-12-29 04:11 | NUR ---
ROUNDS; -Pt is asleep. NO s/s any acute distress noted. Fall precaution in place. Bed alarmed, side rails x3,call light w/in reach. Cont to monitor pt.
[2021-12-29] MEDS: HYDROmorphone 2 MG/ML VIAL IVP PRN ×4 (05:48→21:11)
[2021-12-29] MEDS: ceFAZolin SODIUM 2 GM in D5W 50 ML IV SCH ×3 (05:48→21:36)
--- NOTE | 2021-12-29 06:59 | NUR ---
CLOSING NOTES; -Pt is resting in bed. No s/s any acute distress noted. Left hand IV site patent,no s/s any infiltration noted. Bed alarmed, side rails x2, call light w/in reach. Will endorse to next nurse to cont care.
[2021-12-29 07:29] LABS: BASOPHILS % (AUTO) 0.3 % (0.0-2.0); EOSINOPHILS # (AUTO) 0.1 K/uL (0.0-0.4); EOSINOPHILS % (AUTO) 1.9 % (0.0-4.0); HEMATOCRIT 37.7 % (36-54); LYMPHOCYTES # (AUTO) 0.5 K/uL (1.0-5.5); LYMPHOCYTES % (AUTO) 8.5 % (20.5-51.5); MEAN CORPUSCULAR HEMOGLOBIN 33 pg (27-31); MEAN CORPUSCULAR HGB CONC 34 % (32-36); MEAN CORPUSCULAR VOLUME 95 fL (79.0-98.0); MONOCYTES # (AUTO) 0.3 K/uL (0.0-1.0); MONOCYTES % (AUTO) 5.9 % (1.7-9.3); NEUTROPHILS # (AUTO) 4.8 K/uL (1.8-7.7); NEUTROPHILS % (AUTO) 83.4 % (40.0-70.0); PLATELET COUNT (AUTO) 69 K/uL (130-430); RED BLOOD CELL COUNT(AUTO) 3.96 MIL/uL (4.2-6.2); RED CELL DISTRIBUTION WIDTH 14.6 % (9.0-15.0); WHITE BLOOD COUNT (AUTO) 5.7 K/uL (4.8-10.8)
[2021-12-29 08:00] VITALS: BP_SYST 138
--- NOTE | 2021-12-29 08:00 | NUR ---
MORNING ROUNDS: PATIENT SLEEPING DURING ROUNDS. IV TO TKO AT LEFT HAND INTACT. CALL LIGHT WITH IN REACH. BED LOCKED AT LOWEST POSITION. NOT IN ANY DISTRESS.
[2021-12-29 09:07] LABS: FOLATE (FOLIC ACID) 6.9 ng/mL (>3.0)
[2021-12-29 09:29] LABS: ANION GAP 8 (5-15); CALCIUM 8.4 mg/dL (8.4-11.0); CHLORIDE 107 mmol/L (98-107); CREATININE 0.84 mg/dL (0.55-1.30); GLUCOSE 108 mg/dL (70-99); POTASSIUM 3.4 mmol/L (3.5-5.1); UREA NITROGEN, BLOOD 17 mg/dL (8-21)
[2021-12-29 09:47] LABS: C-REACTIVE PROTEIN QUANT < 0.2 mg/dL (0-0.5); GFR AFRICAN AMERICAN 118 mL/min (>90)
[2021-12-29] MEDS: GABAPENTIN 300 MG CAPSULE PO SCH ×4 (09:48→21:10)
[2021-12-29] MEDS: CITALOPRAM HYDROBROMIDE 20 MG TABLET PO SCH (09:48)
[2021-12-29] MEDS: CILOSTAZOL 50 MG TABLET (PLETAL) PO SCH ×2 (09:48→21:11)
[2021-12-29] MEDS: ASPIRIN 81 MG TAB.CHEW PO SCH (09:48)
[2021-12-29] MEDS ORDERED: CEFA1FRO IV (10:07)
[2021-12-29] MEDS ORDERED: DIATR MEGLU/DIATRIZ SOD 30 ML SOLUTION PO ONE (10:25)
--- NOTE | 2021-12-29 10:32 | NUR ---
Pt refused Ct Scan of Abdomen: Dr Lorenzo Momin informed ,pt refused Ct Scan of Abdomen.No new orders made.
[2021-12-29 11:18] LABS: ERYTHROCYTE SEDIMENTATION RATE 7 MM/HR (0-15)
[2021-12-29 14:28] VITALS: BP_SYST 124
[2021-12-29] MEDS ORDERED: SODIUM PHOSPHATE,MONO-DIBASIC 133 ML ENEMA RC PRN (15:15)
--- NOTE | 2021-12-29 16:13 | NUR ---
CM: faxed the dc back to snf/[facility] fax # , tel [phone]. S/w Darren/admission, he will review the clinical and call back with bed assignment. Addendum: 12/29/21 at 1642 by Emiliana Tong RN Per Darren given bed [place] [facility] report #[phone]. Addendum: 12/29/21 at 1701 by Emiliana Tong RN Ambulance: arranged bariatric unit with [facility] for picker feeder time at 11 AM. (difficult to find ambulance with bariatric crew today). Arabella, Director aware.
[2021-12-29 16:51] VITALS: BP_SYST 142
--- NOTE | 2021-12-29 16:59 | NUR ---
IV PAIN MEDS: PATIENT C/O GENERALIZED PAIN AND DUE IV PAIN MEDS GIVEN PER REQUEST. NO PROBLEM.
--- NOTE | 2021-12-29 17:00 | NUR ---
MIDLINE PLACEMENT: TIME OUT RENDERED PRIOR TO PROCEDURE.PICC LINE NURSE DID MIDLINE PLACEMENT ASEPTICALLY AT LEFT UPPER ARM,CLEAN AND DRY.
--- NOTE | 2021-12-29 18:58 | NUR ---
EVENING ROUNDS: POSSIBLE TRANSFER TO SNF TOMORROW. MIDLINE PLACED FOR IV ANTIBIOTICS ,INTACT. CALL LIGHT WITH IN REACH. BED LOCKED AT LOWEST POSITION. STABLE.
[2021-12-29 20:00] VITALS: BP_SYST 139
[2021-12-29] MEDS: ATORVASTATIN 20 MG TABLET PO SCH (21:10)
[2021-12-30] VITALS: BP_SYST 140
[2021-12-30] MEDS: HYDROmorphone 2 MG/ML VIAL IVP PRN ×3 (03:00→10:56)
[2021-12-30] MEDS: ceFAZolin SODIUM 2 GM in D5W 50 ML IV SCH (06:25)
[2021-12-30 07:26] VITALS: BP_SYST 153
[2021-12-30 07:26] LABS: BASOPHILS % (AUTO) 0.2 % (0.0-2.0); EOSINOPHILS # (AUTO) 0.1 K/uL (0.0-0.4); EOSINOPHILS % (AUTO) 2.4 % (0.0-4.0); HEMATOCRIT 38.3 % (36-54); HEMOGLOBIN 13.3 g/dL (14.0-18.0); LYMPHOCYTES # (AUTO) 0.4 K/uL (1.0-5.5); MEAN CORPUSCULAR HEMOGLOBIN 33 pg (27-31); MEAN CORPUSCULAR HGB CONC 35 % (32-36); MEAN CORPUSCULAR VOLUME 95 fL (79.0-98.0); MONOCYTES # (AUTO) 0.1 K/uL (0.0-1.0); MONOCYTES % (AUTO) 3.5 % (1.7-9.3); NEUTROPHILS # (AUTO) 3.3 K/uL (1.8-7.7); NEUTROPHILS % (AUTO) 82.9 % (40.0-70.0); PLATELET COUNT (AUTO) 66 K/uL (130-430); RED BLOOD CELL COUNT(AUTO) 4.05 MIL/uL (4.2-6.2); RED CELL DISTRIBUTION WIDTH 14.5 % (9.0-15.0)
--- NOTE | 2021-12-30 07:36 | NUR ---
OPEN NOTE Patient resting in bed. A/O x 4 speaks Portuguese. Patient denies SOB, or distress at this moment, but states pain to Right lower leg that is 2/10. Dilaudid given about 42 mins ago by nightshift nurse. Patient has Midline to KYRIE patent on SL. Patient has Left above the knee amputation and cellulitis to Right lower leg. Patient on bedrest and uses urinal for toileting needs. Urinal is at bedside within reach. One on one sitter present due to suicidal thoughts and patient has pending Telephsych consult today. Bed is locked in lowest position, all needs met at this time and will continue to monitor.
[2021-12-30 07:40] LABS: ANION GAP 7 (5-15); C-REACTIVE PROTEIN QUANT < 0.2 mg/dL (0-0.5); CALCIUM 8.5 mg/dL (8.4-11.0); CHLORIDE 107 mmol/L (98-107); CREATININE 0.86 mg/dL (0.55-1.30); GLUCOSE 114 mg/dL (70-99); POTASSIUM 3.4 mmol/L (3.5-5.1); UREA NITROGEN, BLOOD 15 mg/dL (8-21)
[2021-12-30] MEDS: ASPIRIN 81 MG TAB.CHEW PO SCH (08:39)
[2021-12-30] MEDS: CITALOPRAM HYDROBROMIDE 20 MG TABLET PO SCH (08:39)
[2021-12-30] MEDS: GABAPENTIN 300 MG CAPSULE PO SCH (08:40)
[2021-12-30] MEDS: CILOSTAZOL 50 MG TABLET (PLETAL) PO SCH (08:40)
[2021-12-30 08:55] LABS: GFR AFRICAN AMERICAN 114 mL/min (>90)
[2021-12-30 11:34] VITALS: BP_SYST 122
--- NOTE | 2021-12-30 11:46 | NUR ---
[facility] Report given to ANGELY Oropeza for patient's transfer. Patient already dressed and signed paperwork for discharge. Awaiting transportation.
[2021-12-30 12:00] VITALS: BP_SYST 122
[2021-12-30 12:07] LABS: ERYTHROCYTE SEDIMENTATION RATE 11 MM/HR (0-15)
--- NOTE | 2021-12-30 13:41 | NUR ---
PT TRANSFERRED Report given to JohnnaRN at 1146am. Transfer packet with Transfer Orders and Medication Reconciliation form given to EMT with report. Exitcare provided. [facility] ID band removed, replaced with ID band with pt's name and . Midline to KYRIE in place per SNF request. All belongings sent with patient. Patient left floor via gurney escorted by EMT in no distress.
== END 2021-12-30 13:41 | DRG 603 ==
LOC: SED 17:21 → SMU 12-26 00:03
PROVIDERS: ADMIT Preventive Medicine Preventive Medicine/Occupational Environmental Medicine; ATTEND Preventive Medicine Preventive Medicine/Occupational Environmental Medicine
DX: L03.115 Cellulitis of right lower limb (principal); E44.0 Moderate protein-calorie malnutrition; F33.9 Major depressive disorder, recurrent, unspecified; D61.818 Other pancytopenia; Z68.41 Body mass index [BMI] 40.0-44.9, adult; J44.9 Chronic obstructive pulmonary disease, unspecified; E11.51 Type 2 diabetes mellitus with diabetic peripheral angiopathy without gangrene; K21.9 Gastro-esophageal reflux disease without esophagitis; E88.09 Other disorders of plasma-protein metabolism, not elsewhere classified; G89.4 Chronic pain syndrome; F17.210 Nicotine dependence, cigarettes, uncomplicated; I89.0 Lymphedema, not elsewhere classified; I10 Essential (primary) hypertension; I73.9 Peripheral vascular disease, unspecified; E66.01 Morbid (severe) obesity due to excess calories; D69.59 Other secondary thrombocytopenia; E55.9 Vitamin D deficiency, unspecified; S91.109A Unspecified open wound of unspecified toe(s) without damage to nail, initial encounter; X58.XXXA Exposure to other specified factors, initial encounter; Z20.822 Contact with and (suspected) exposure to COVID-19; D73.1 Hypersplenism; E11.65 Type 2 diabetes mellitus with hyperglycemia; E87.6 Hypokalemia; Z89.612 Acquired absence of left leg above knee; Y93.89 Activity, other specified; Y92.89 Other specified places as the place of occurrence of the external cause; Y99.8 Other external cause status; Z79.82 Long term (current) use of aspirin; Z79.899 Other long term (current) drug therapy; Z79.1 Long term (current) use of non-steroidal anti-inflammatories (NSAID)
CPT/HCPCS: 36415; 71045; 76700-TC; 80048; 80053; 81003; 82009; 82607; 82728; 82746; 83540; 83550; 83605; 83735; 84100; 84484; 85025; 85384; 85610-TC; 85651-TC; 85730-TC; 86140; 87040; 87081; 87086; 93005; 93922; 93971; 96365; 96367; 99285; J1170; J1447; J2060; J2543; J3370; J7060; Q9964